=== PATIENT | male | born 1970 | race Two or more races ===

== ENCOUNTER 2023-03-19 06:05 | Day surgery (SDC) | payer OTHER ==
[~2023-03-19] VITALS: Ht 172.7 cm; Wt 87.5 kg
[~2023-03-19 06:05] MED LIST: ABILIFY30 MG PO; BUPRO PO; CLONAZEPAM2 MG PO; DEPAKOTE ER250 MG PO; GLUMETZA500 MG PO; LOVAZA1 GM PO; TIROSINT75 MCG PO; TRILIPIX135 MG PO; ZYLOPRIM100 M1 PO
[2023-03-19] MEDS ORDERED: PERCOCET 5-3251 EACH PO ×2 (10:21→12:36)
[2023-03-19] MEDS ORDERED: RECTICARE30 GM TOP (10:22)
[2023-03-19] MEDS ORDERED: DERMOPLAST FIRS78 GM TOP (10:23)
== END 2023-03-19 16:30 | disposition home or self-care (01) ==
LOC: CIR.AMB 06:05 → O/R 12:28 → CIR.AMB 16:30
PROVIDERS: ATTEND Surgery
DX: K60.3 Anal fistula (principal); K64.5 Perianal venous thrombosis; Z20.822 Contact with and (suspected) exposure to COVID-19; I10 Essential (primary) hypertension